=== PATIENT | female | born 1955 | race Caucasian/White ===

== ENCOUNTER 2024-12-25 08:18 | Outpatient (CLI) | payer MEDICARE, OTHER, SELFPAY ==
[2024-12-25 10:41] VITALS: BMI 44.3
== END 2024-12-25 08:19 | disposition home or self-care (01) ==
LOC: NUTRITION 08:19
PROVIDERS: PCP Family Medicine; Visit Provider Dietitian, Registered
DX: E66.9 Obesity, unspecified (principal); Z68.41 Body mass index [BMI] 40.0-44.9, adult; Z71.3 Dietary counseling and surveillance
CPT/HCPCS: G0463

== ENCOUNTER 2025-01-09 07:17 | Outpatient (CLI) | payer MEDICARE, OTHER, SELFPAY ==
[2025-01-09 11:41] VITALS: BMI 44.8
== END 2025-01-09 07:18 | disposition home or self-care (01) ==
LOC: NUTRITION 07:17
PROVIDERS: PCP Family Medicine; Visit Provider Dietitian, Registered
DX: E66.9 Obesity, unspecified (principal); Z68.41 Body mass index [BMI] 40.0-44.9, adult; Z71.3 Dietary counseling and surveillance
CPT/HCPCS: G0463

== ENCOUNTER 2025-01-22 05:15 | Outpatient (CLI) | payer MEDICARE, OTHER, SELFPAY ==
[2025-01-22 14:15] VITALS: BMI 42.7
== END 2025-01-22 05:16 | disposition home or self-care (01) ==
LOC: NUTRITION 05:17
PROVIDERS: PCP Family Medicine; Visit Provider Dietitian, Registered
DX: E66.9 Obesity, unspecified (principal); Z68.41 Body mass index [BMI] 40.0-44.9, adult; Z71.3 Dietary counseling and surveillance
CPT/HCPCS: G0463

== ENCOUNTER 2025-01-30 08:04 | Outpatient (CLI) | payer MEDICARE, OTHER, SELFPAY ==
[2025-01-30 13:33] VITALS: BMI 42.5
== END 2025-01-30 08:05 | disposition home or self-care (01) ==
LOC: NUTRITION 08:04
PROVIDERS: PCP Family Medicine; Visit Provider Dietitian, Registered
DX: E66.9 Obesity, unspecified (principal); Z68.41 Body mass index [BMI] 40.0-44.9, adult; Z71.3 Dietary counseling and surveillance
CPT/HCPCS: G0463

== ENCOUNTER 2025-02-17 11:00 | Outpatient (CLI) | payer MEDICARE, OTHER, SELFPAY | END 2025-02-17 11:01 | disposition home or self-care (01) | LOC: NFLDREF 02-19 14:09 | PROVIDERS: PCP Family Medicine; Referring Provider Family Medicine; Visit Provider Family Medicine | DX: E03.9 Hypothyroidism, unspecified (principal); E53.8 Deficiency of other specified B group vitamins; E55.9 Vitamin D deficiency, unspecified; R53.83 Other fatigue; Z13.9 Encounter for screening, unspecified; M81.0 Age-related osteoporosis without current pathological fracture | CPT/HCPCS: 80053; 80061; 82306; 82607; 82728; 84439; 84443 ==

== ENCOUNTER 2025-03-19 11:57 | Outpatient (CLI) | payer MEDICARE, OTHER, SELFPAY | END 2025-03-19 11:58 | disposition home or self-care (01) | LOC: NFLDREF 11:58 | PROVIDERS: PCP Family Medicine; Visit Provider Family Medicine | DX: N39.0 Urinary tract infection, site not specified (principal) | CPT/HCPCS: 87086 ==

== ENCOUNTER 2025-03-20 13:54 | Outpatient (CLI) | payer MEDICARE, OTHER, SELFPAY ==
--- NOTE | 2025-03-20 14:00 | CRLHL7_ITS ---
For Patients: As a result of the Century Cures Act, medical imaging exams and procedure reports are released immediately into your electronic medical record. You may view this report before your referring provider. If you have questions, please contact your health care provider. DXA BONE MINERAL DENSITY STUDY Reason for exam: Asymptomatic menopausal state. Current height (in): 67. Weight (lb): 263. Menopause age: 46. Ethnicity: White. 1. Have you had a previous hip or vertebral fracture? No. 2. Have you had any fractures during your adult life which did not result from significant trauma (e.g., auto accident)? No. 3. Did either of your parents have a hip fracture? No. 4. Do you smoke? No. 5. Have you ever taken Glucocorticoids? Yes. 6. Do you have rheumatoid arthritis? No. 7. Do you have secondary osteoporosis? No. 8. Do you drink 3 or more alcoholic drinks per day? No. 9. Are you being treated for osteoporosis? No. 10. Have you ever taken any of the following medications: Actonel, Evista, Fosamax, Miacalcin, Reclast, Boniva, Forteo, HRT (i.e. estrogen/hormone therapy), Protelos, Prolia, Vitamin D, Calcium, other ??? please specify. ANSWER: Yes, Vitamin D and Calcium. 11. Do you have any of the following medical conditions: Anorexia or bulimia, asthma or emphysema, end stage renal disease, hyperparathyroidism, any seizure disorders, cancer, inflammatory bowel diseases, hysterectomy, other ??? please specify. ANSWER: Yes, hysterectomy. 12. What was your maximum height (inches)? 70. 13. Do you perform weight bearing exercise regularly? No. 14. Do you regularly consume dairy products? 15. Do you drink caffeinated beverages? Yes. 16. At what age did your period start? 14. 17. Are you premenopausal? No. 18. How many full-term pregnancies have you had? 0. 19. Have you ever missed your period for more than 6 months in a row (not including or menopause)? Not provided. TECHNIQUE: Bone mineral density study was performed using the [employer]. FINDINGS: The results of the study expressed as bone mineral density (BMD) are as follows: Lumbar spine L1 to L4: BMD: 1.379 g/cm2. T-score: 3.0. Z-score: 5.0. Neck Left: BMD: 0.997 g/cm2. T-score: 1.3. Z-score: 3.0. Right: BMD: 0.846 g/cm2. T-score: 0.0. Z-score: 1.7. Total Left: BMD: 1.083 g/cm2. T-score: 1.2. Z-score: 2.5. Right: BMD: 1.100 g/cm2. T-score: 1.3. Z-score: 2.7. IMPRESSION: Normal bone density. *Comparison exams done prior to 09/2019 were performed on different unit, [email or web address]. Khoa Fernandes M.D. Diagnostic Radiologist [email or web address] MAGDALENO/emil stein/Dictated by: Khoa Fernandes MD @ 03/21/2025 9:23:00 AM (Electronically Signed)
== END 2025-03-20 13:55 | disposition home or self-care (01) ==
LOC: RAD 13:57
PROVIDERS: PCP Family Medicine; Visit Provider Family Medicine
DX: Z78.0 Asymptomatic menopausal state (principal)
CPT/HCPCS: 77080